=== PATIENT | female | born 1980 | race Caucasian/White ===

== ENCOUNTER 2017-09-18 16:19 | Emergency (ER) | payer OTHER ==
[~2017-09-18] VITALS: Ht 157.5 cm; Wt 62.1 kg
[~2017-09-18 16:19] MED LIST: Bactrim Ds Tab1 EACH PO; CIPR500 PO; Cleocin HCl150 MG PO; Cleocin HCl300 MG PO; ERYT.5TO BOTHEYES; Flagyl500 MG PO; MUPI2TC TOP; Norco 5-325 Ta1 EACH PO; PROM25 PO; Roxicodone5 MG PO; Ultram50 MG PO; Zofran4 MG PO
[2017-09-18 17:20] LABS: Source, Urine Clean Catch
[2017-09-18 17:24] LABS: Appearance, Urine Hazy (Clear); Bilirubin, Urine Neg (Neg); Blood, Urine 5+ (Neg); Color, Urine Yellow (P-Yellow); Glucose Qualitative, Urine Neg (Neg); Ketones, Urine Neg (Neg); Leukocyte Esterase, Urine 1+ (Neg); Nitrite, Urine Neg (Neg); Protein, Urine 1+ (Neg); Specific Gravity, Urine 1.005 (1.003-1.022); Urobilinogen, Urine NORM (Normal); pH, Urine 6.5 (5.0-8.0)
[2017-09-18 17:43] LABS: Bacteria Not Seen /hpf; Squamous Epithelial Cells Few /hpf (Few); White Blood Cells, Urine 0-2 /hpf (0-5)
[2017-09-18 19:16] LABS: BASOPHILS ABSOLUTE AUTO 0.05 K/mm3 (0.00-0.23); BASOPHILS PERCENT AUTO 1 % (0-2); EOSINOPHILS ABSOLUTE AUTO 0.16 K/mm3 (0.00-0.68); EOSINOPHILS PERCENT AUTO 2 % (0-6); Hematocrit 42.6 % (33.0-51.0); Hemoglobin 14.3 g/dL (11.5-16.0); IMMATURE GRAN ABSOLUTE AUTO 0.01 K/mm3 (0.00-0.10); IMMATURE GRAN PERCENT AUTO 0 % (0-1); LYMPHOCYTES ABSOLUTE AUTO 3.23 K/mm3 (0.84-5.20); LYMPHOCYTES PERCENT AUTO 42 % (21-46); MONOCYTES ABSOLUTE AUTO 0.75 K/mm3 (0.16-1.47); MONOCYTES PERCENT AUTO 10 % (4-13); Mean Corpuscular HGB 31.2 pg (26.0-34.0); Mean Corpuscular HGB Conc 33.6 g/dL (31.5-36.5); Mean Corpuscular Volume 93 fL (80-100); Mean Platelet Volume 11.7 fL (9.1-12.4); NEUTROPHILS ABSOLUTE AUTO 3.52 K/mm3 (1.96-9.15); NEUTROPHILS PERCENT AUTO 46 % (41-73); Platelet Count 174 K/mm3 (150-400); RDW Coefficient Variation 13.6 % (11.7-14.2); RDW Standard Deviation 46.3 fL (35.1-46.3); Red Blood Cell Count 4.58 M/mm3 (3.80-5.20); White Blood Cell Count 7.72 K/mm3 (4.00-11.30)
[2017-09-18 19:35] LABS: Alanine Aminotransfer (ALT/SGP 270 U/L (12-78); Albumin, Blood 3.8 g/dL (3.4-5.0); Albumin/Globulin Ratio 1.1 (0.8-1.8); Alk Phos 81 U/L (50-136); Anion Gap 6 mmol/L (6-16); Aspartate Aminotrans (AST/SGOT 132 U/L (12-37); Bilirubin, Total 0.5 mg/dL (0.1-1.0); Blood Urea Nitrogen 12 mg/dL (8-24); Bun/Creatinine Ratio 12.1 (12.0-20.0); CO2, Blood 23 mmol/L (21-32); Calcium, Blood 8.3 mg/dL (8.5-10.1); Chloride, Blood 114 mmol/L (98-108); Creatinine, Blood 0.99 mg/dL (0.40-1.00); Globulin, Blood 3.5 g/dL (2.2-4.0); Glomerular Filtration Rate >60 (60-); Glucose, Blood 88 mg/dL (70-99); Potassium, Blood 4.3 mmol/L (3.5-5.5); Sodium, Blood 143 mmol/L (136-145); Total Protein, Blood 7.3 g/dL (6.4-8.2)
[2017-09-18] MEDS ORDERED: METO10 PO (20:52)
== END 2017-09-18 21:07 | disposition home or self-care (01) ==
LOC: ER 16:19
PROVIDERS: Emergency Medicine
DX: K52.9 Noninfective gastroenteritis and colitis, unspecified (principal); Z88.6 Allergy status to analgesic agent; Z88.8 Allergy status to other drugs, medicaments and biological substances; Z88.0 Allergy status to penicillin; F17.210 Nicotine dependence, cigarettes, uncomplicated
CPT/HCPCS: 74176; 80053; 81001; 81025; 85025; 96361; 96374; 96375; 99284; J1200; J1630; J2550; J2765; J3010; J7030

== ENCOUNTER 2017-10-01 23:03 | Emergency (ER) | payer OTHER ==
[~2017-10-01] VITALS: Ht 154.9 cm; Wt 57.1 kg
[~2017-10-01 23:03] MED LIST changes: +METO10 PO
[2017-10-02 00:20] LABS: Calcium, Ionized (POC) 1.19 mmol/L (1.10-1.46); Chloride (POC) 108 mmol/L (98-108); Creatinine (POC) 0.8 mg/dL (0.6-1.0); Glucose (ISTAT POC) 104 mg/dL (70-99); Hemoglobin (POC) 13.6 g/dL (12.0-16.0); Potassium (POC) 3.5 mmol/L (3.5-5.5); Sodium (POC) 142 mmol/L (135-148); Total CO2 (POC) 22 mmol/L (21-32)
== END 2017-10-02 00:48 | disposition home or self-care (01) ==
LOC: ER 23:03
PROVIDERS: Emergency Medicine
DX: S90.31XA Contusion of right foot, initial encounter (principal); R25.2 Cramp and spasm; X58.XXXA Exposure to other specified factors, initial encounter; Z88.8 Allergy status to other drugs, medicaments and biological substances; Z88.6 Allergy status to analgesic agent; Z88.0 Allergy status to penicillin; F17.210 Nicotine dependence, cigarettes, uncomplicated
CPT/HCPCS: 73630; 80047; 85014; 99283

== ENCOUNTER 2017-10-29 18:34 | Emergency (ER) | payer OTHER ==
[~2017-10-29] VITALS: Ht 154.9 cm; Wt 57.6 kg
[2017-10-29] MEDS ORDERED: HYDPAM25 PO (18:48)
[2017-10-29 19:19] LABS: Source, Urine Clean Catch
[2017-10-29 19:19] LABS: BASOPHILS ABSOLUTE AUTO 0.02 K/mm3 (0.00-0.23); BASOPHILS PERCENT AUTO 0 % (0-2); EOSINOPHILS ABSOLUTE AUTO 0.03 K/mm3 (0.00-0.68); EOSINOPHILS PERCENT AUTO 0 % (0-6); Hematocrit 38.6 % (33.0-51.0); Hemoglobin 13.3 g/dL (11.5-16.0); IMMATURE GRAN ABSOLUTE AUTO 0.02 K/mm3 (0.00-0.10); IMMATURE GRAN PERCENT AUTO 0 % (0-1); LYMPHOCYTES ABSOLUTE AUTO 1.87 K/mm3 (0.84-5.20); LYMPHOCYTES PERCENT AUTO 24 % (21-46); MONOCYTES ABSOLUTE AUTO 0.65 K/mm3 (0.16-1.47); MONOCYTES PERCENT AUTO 8 % (4-13); Mean Corpuscular HGB 30.9 pg (26.0-34.0); Mean Corpuscular HGB Conc 34.5 g/dL (31.5-36.5); Mean Corpuscular Volume 90 fL (80-100); NEUTROPHILS ABSOLUTE AUTO 5.18 K/mm3 (1.96-9.15); NEUTROPHILS PERCENT AUTO 67 % (41-73); Platelet Count 205 K/mm3 (150-400); RDW Coefficient Variation 13.7 % (11.7-14.2); RDW Standard Deviation 45.1 fL (35.1-46.3); White Blood Cell Count 7.77 K/mm3 (4.00-11.30)
[2017-10-29 19:31] LABS: Bilirubin, Urine Neg (Neg); Blood, Urine 1+ (Neg); Glucose Qualitative, Urine Neg (Neg); Ketones, Urine 1+ (Neg); Leukocyte Esterase, Urine 1+ (Neg); Nitrite, Urine Pos (Neg); Protein, Urine 1+ (Neg); Specific Gravity, Urine 1.025 (1.003-1.022); Urobilinogen, Urine 1+ (Normal)
[2017-10-29 19:32] LABS: Appearance, Urine Hazy (Clear); Bacteria Many /hpf; Color, Urine Yellow (P-Yellow); Red Blood Cells, Urine 0-2 /hpf (0-2); Squamous Epithelial Cells Mod /hpf (Few)
[2017-10-29 19:33] LABS: Calcium Oxalate Crystals Few /hpf
[2017-10-29 19:38] LABS: Alanine Aminotransfer (ALT/SGP 451 U/L (12-78); Albumin, Blood 3.6 g/dL (3.4-5.0); Albumin/Globulin Ratio 0.9 (0.8-1.8); Alk Phos 96 U/L (50-136); Anion Gap 10 mmol/L (6-16); Aspartate Aminotrans (AST/SGOT 285 U/L (12-37); Bilirubin, Total 0.5 mg/dL (0.1-1.0); Blood Urea Nitrogen 18 mg/dL (8-24); Bun/Creatinine Ratio 17.3 (12.0-20.0); CO2, Blood 20 mmol/L (21-32); Calcium, Blood 9.2 mg/dL (8.5-10.1); Chloride, Blood 111 mmol/L (98-108); Creatinine, Blood 1.04 mg/dL (0.40-1.00); Globulin, Blood 3.8 g/dL (2.2-4.0); Glomerular Filtration Rate >60 (60-); Glucose, Blood 121 mg/dL (70-99); Potassium, Blood 3.8 mmol/L (3.5-5.5); Sodium, Blood 141 mmol/L (136-145); Total Protein, Blood 7.4 g/dL (6.4-8.2); Troponin I <0.015 ng/mL (0.000-0.040)
[2017-10-29 19:51] LABS: U Amphetamine Screen Not Detected; U Barbituate Screen Not Detected; U Benzodiazapine Screen DETECTED; U Buprenorphine Screen Not Detected; U Cannabinoids Screen DETECTED; U Cocaine Screen Not Detected; U Methadone Screen Not Detected; U Methamphetamine Screen Not Detected; U Opiates Screen Not Detected; U Oxycodone Screen Not Detected; U Phencyclidine Screen Not Detected; U Propoxyphene Screen Not Detected
[2017-10-29 21:20] LABS: Source, Urine Clean Catch
[2017-10-29 21:32] LABS: Appearance, Urine Clear (Clear); Bilirubin, Urine Neg (Neg); Blood, Urine Neg (Neg); Color, Urine Yellow (P-Yellow); Glucose Qualitative, Urine Neg (Neg); Ketones, Urine Neg (Neg); Leukocyte Esterase, Urine Neg (Neg); Nitrite, Urine Neg (Neg); Protein, Urine Neg (Neg); Specific Gravity, Urine 1.025 (1.003-1.022); Urobilinogen, Urine NORM (Normal)
== END 2017-10-29 22:00 | disposition left against medical advice (07) ==
LOC: ER 18:34
PROVIDERS: Emergency Medicine
DX: R55 Syncope and collapse (principal); S00.83XA Contusion of other part of head, initial encounter; F17.210 Nicotine dependence, cigarettes, uncomplicated; Z88.1 Allergy status to other antibiotic agents; Z88.6 Allergy status to analgesic agent; Z88.0 Allergy status to penicillin; Z88.5 Allergy status to narcotic agent; Z88.8 Allergy status to other drugs, medicaments and biological substances; Z79.899 Other long term (current) drug therapy; W19.XXXA Unspecified fall, initial encounter
CPT/HCPCS: 71046; 80053; 81001; 81003; 84443; 84484; 85025; 87077; 87086; 87186; 93005; 93010; 96372; 99285-25; J2550

== ENCOUNTER 2018-01-04 14:32 | Emergency (ER) | payer OTHER ==
[~2018-01-04] VITALS: Ht 154.9 cm; Wt 55.8 kg
[~2018-01-04 14:32] MED LIST changes: +HYDPAM25 PO
[2018-01-04 15:19] LABS: BASOPHILS ABSOLUTE AUTO 0.06 K/mm3 (0.00-0.23); BASOPHILS PERCENT AUTO 1 % (0-2); EOSINOPHILS ABSOLUTE AUTO 0.13 K/mm3 (0.00-0.68); EOSINOPHILS PERCENT AUTO 1 % (0-6); IMMATURE GRAN ABSOLUTE AUTO 0.02 K/mm3 (0.00-0.10); IMMATURE GRAN PERCENT AUTO 0 % (0-1); LYMPHOCYTES ABSOLUTE AUTO 3.41 K/mm3 (0.84-5.20); LYMPHOCYTES PERCENT AUTO 32 % (21-46); MONOCYTES ABSOLUTE AUTO 0.84 K/mm3 (0.16-1.47); MONOCYTES PERCENT AUTO 8 % (4-13); Mean Corpuscular HGB 31.3 pg (26.0-34.0); Mean Corpuscular HGB Conc 33.3 g/dL (31.5-36.5); Mean Corpuscular Volume 94 fL (80-100); Mean Platelet Volume 11.8 fL (9.1-12.4); NEUTROPHILS ABSOLUTE AUTO 6.12 K/mm3 (1.96-9.15); NEUTROPHILS PERCENT AUTO 58 % (41-73); Platelet Count 212 K/mm3 (150-400); RDW Coefficient Variation 13.1 % (11.7-14.2); RDW Standard Deviation 45.2 fL (35.1-46.3); Red Blood Cell Count 4.47 M/mm3 (3.80-5.20); White Blood Cell Count 10.58 K/mm3 (4.00-11.30)
[2018-01-04 15:34] LABS: Alanine Aminotransfer (ALT/SGP 156 U/L (12-78); Albumin, Blood 3.7 g/dL (3.4-5.0); Albumin/Globulin Ratio 0.9 (0.8-1.8); Alk Phos 88 U/L (50-136); Anion Gap 6 mmol/L (6-16); Aspartate Aminotrans (AST/SGOT 80 U/L (12-37); Bilirubin, Total 0.5 mg/dL (0.1-1.0); Blood Urea Nitrogen 18 mg/dL (8-24); Bun/Creatinine Ratio 20.3 (12.0-20.0); CO2, Blood 24 mmol/L (21-32); Calcium, Blood 8.9 mg/dL (8.5-10.1); Chloride, Blood 110 mmol/L (98-108); Creatinine, Blood 0.89 mg/dL (0.40-1.00); Globulin, Blood 3.9 g/dL (2.2-4.0); Glomerular Filtration Rate >60 (60-); Glucose, Blood 87 mg/dL (70-99); Potassium, Blood 4.1 mmol/L (3.5-5.5); Sodium, Blood 140 mmol/L (136-145); Total Protein, Blood 7.6 g/dL (6.4-8.2)
[2018-01-04] MEDS ORDERED: Bactrim Ds Tab1 EACH PO (19:02)
[2018-01-04] MEDS ORDERED: Cleocin HCl300 MG PO (19:02)
== END 2018-01-04 19:09 | disposition home or self-care (01) ==
LOC: ER 14:32
PROVIDERS: Emergency Medicine
DX: L03.032 Cellulitis of left toe (principal); L03.113 Cellulitis of right upper limb; L03.311 Cellulitis of abdominal wall; F17.210 Nicotine dependence, cigarettes, uncomplicated
CPT/HCPCS: 36415; 73660; 80053; 85025; 99284-25; J1885

== ENCOUNTER 2018-09-06 00:13 | Emergency (ER) | payer OTHER ==
[~2018-09-06] VITALS: Ht 154.9 cm; Wt 57.6 kg
== END 2018-09-06 02:08 | disposition home or self-care (01) ==
LOC: ER 00:13
DX: S09.90XA Unspecified injury of head, initial encounter (principal); S40.022A Contusion of left upper arm, initial encounter; F17.210 Nicotine dependence, cigarettes, uncomplicated; Z88.1 Allergy status to other antibiotic agents; Z88.6 Allergy status to analgesic agent; Z88.0 Allergy status to penicillin; Z88.5 Allergy status to narcotic agent; Z88.8 Allergy status to other drugs, medicaments and biological substances; W22.8XXA Striking against or struck by other objects, initial encounter
CPT/HCPCS: 70450; 72125; 73030; 81025; 99284-25

== ENCOUNTER 2020-05-04 19:29 | Emergency (ER) | payer SELFPAY ==
[~2020-05-04] VITALS: Ht 154.9 cm; Wt 63.5 kg
== END 2020-05-04 20:42 | disposition home or self-care (01) ==
LOC: ER 19:29
DX: B34.9 Viral infection, unspecified (principal); F17.210 Nicotine dependence, cigarettes, uncomplicated; Z88.1 Allergy status to other antibiotic agents; Z88.6 Allergy status to analgesic agent; Z91.030 Bee allergy status; Z91.018 Allergy to other foods
CPT/HCPCS: 99284

== ENCOUNTER 2022-11-20 12:57 | Emergency (ER) | payer OTHER ==
[~2022-11-20] VITALS: Ht 154.9 cm; Wt 63.5 kg
[2022-11-20 13:14] VITALS: BP 146/98
[2022-11-20] MEDS ORDERED: Clindamycin HC150 MG PO (14:45)
[2022-11-20] MEDS ORDERED: Percocet 5-3251 EACH PO (14:45)
== END 2022-11-20 14:51 | disposition home or self-care (01) ==
LOC: ER 12:57
DX: K02.9 Dental caries, unspecified (principal); F17.210 Nicotine dependence, cigarettes, uncomplicated; Z88.1 Allergy status to other antibiotic agents; Z88.0 Allergy status to penicillin; Z88.6 Allergy status to analgesic agent; Z91.030 Bee allergy status; Z88.8 Allergy status to other drugs, medicaments and biological substances; Z91.018 Allergy to other foods
CPT/HCPCS: 99282

== ENCOUNTER 2022-12-08 14:24 | Inpatient (IN) | payer OTHER ==
[~2022-12-08] VITALS: Ht 157.5 cm; Wt 64.7 kg
[~2022-12-08 14:24] MED LIST changes: +Clindamycin HC150 MG PO; +Percocet 5-3251 EACH PO
[2022-12-08] MEDS ORDERED: DOXYCYCLINE HY100 M1 PO (14:31)
[2022-12-08 20:02] LABS: BASOPHILS ABSOLUTE AUTO 0.04 K/mm3 (0.00-0.23); BASOPHILS PERCENT AUTO 1 % (0-2); EOSINOPHILS ABSOLUTE AUTO 0.21 K/mm3 (0.00-0.68); EOSINOPHILS PERCENT AUTO 3 % (0-6); Hematocrit 38.5 % (33.0-51.0); IMMATURE GRAN ABSOLUTE AUTO 0.01 K/mm3 (0.00-0.10); IMMATURE GRAN PERCENT AUTO 0 % (0-1); LYMPHOCYTES ABSOLUTE AUTO 1.91 K/mm3 (0.84-5.20); LYMPHOCYTES PERCENT AUTO 28 % (21-46); MONOCYTES ABSOLUTE AUTO 0.67 K/mm3 (0.16-1.47); MONOCYTES PERCENT AUTO 10 % (4-13); Mean Corpuscular HGB 29.2 pg (26.0-34.0); Mean Corpuscular HGB Conc 33.8 g/dL (31.5-36.5); Mean Corpuscular Volume 87 fL (80-100); NEUTROPHILS ABSOLUTE AUTO 3.93 K/mm3 (1.96-9.15); NEUTROPHILS PERCENT AUTO 58 % (41-73); Platelet Count 209 K/mm3 (150-400); Red Blood Cell Count 4.45 M/mm3 (3.80-5.20); White Blood Cell Count 6.77 K/mm3 (4.00-11.30)
[2022-12-08 20:03] LABS: Mean Platelet Volume 13.4 fL (9.1-12.4)
[2022-12-08 20:19] LABS: Albumin, Blood 2.9 g/dL (3.4-5.0); Albumin/Globulin Ratio 0.7 (0.8-1.8); Bilirubin, Total 0.2 mg/dL (0.1-1.0); Bun/Creatinine Ratio 23.8 (12.0-20.0); Calcium, Blood 8.6 mg/dL (8.5-10.1); Creatinine, Blood 0.92 mg/dL (0.40-1.00); Globulin, Blood 4.2 g/dL (2.2-4.0); Potassium, Blood 4.1 mmol/L (3.5-5.5); Total Protein, Blood 7.1 g/dL (6.4-8.2)
[2022-12-08 23:15] VITALS: BP 143/101
[2022-12-09 05:56] LABS: BASOPHILS ABSOLUTE AUTO 0.04 K/mm3 (0.00-0.23); BASOPHILS PERCENT AUTO 1 % (0-2); EOSINOPHILS ABSOLUTE AUTO 0.19 K/mm3 (0.00-0.68); EOSINOPHILS PERCENT AUTO 4 % (0-6); Hematocrit 36.4 % (33.0-51.0); Hemoglobin 12.2 g/dL (11.5-16.0); IMMATURE GRAN ABSOLUTE AUTO 0.01 K/mm3 (0.00-0.10); IMMATURE GRAN PERCENT AUTO 0 % (0-1); LYMPHOCYTES ABSOLUTE AUTO 1.78 K/mm3 (0.84-5.20); LYMPHOCYTES PERCENT AUTO 34 % (21-46); MONOCYTES ABSOLUTE AUTO 0.65 K/mm3 (0.16-1.47); MONOCYTES PERCENT AUTO 12 % (4-13); Mean Corpuscular HGB Conc 33.5 g/dL (31.5-36.5); Mean Corpuscular Volume 87 fL (80-100); Mean Platelet Volume 11.9 fL (9.1-12.4); NEUTROPHILS ABSOLUTE AUTO 2.65 K/mm3 (1.96-9.15); NEUTROPHILS PERCENT AUTO 50 % (41-73); Platelet Count 187 K/mm3 (150-400); RDW Coefficient Variation 15.2 % (11.7-14.2); RDW Standard Deviation 48.7 fL (35.1-46.3); White Blood Cell Count 5.32 K/mm3 (4.00-11.30)
--- NOTE | 2022-12-09 06:05 | NUR ---
SHIFT SUMMARY PT ARRIVED AT 2311, AAOX3, C/O HEADAHCE UNRELIEVED BY OXYCODONE. CALLED DR. HAMMONDS TO REQUEST ADDITIONAL PAIN MEDICATION. PRN FENTANYL ORDERED, AFTER MEDICATION VERIFIED RETURNED TO PT TO ASK IF SHE WOULD LIKE THIS MEDICATION AND PT WAS SLEEPING. WHEN PHLEBOTOMY WOKE PT UP FOR MORNING LABS PT C/O 10/ HEADACHE AND REQUESTED THE IV PAIN MEDICATION. PRN 50MCG FENTANYL GIVEN PER ORDER, PT CURRENTLY SLEEPING. FIRE SAFETY REVIEWED, NO IGNITION SOURCES
[2022-12-09 06:09] LABS: International Normalized Ratio 0.92; Prothrombin Time Results 9.7 Sec (9.7-11.5)
[2022-12-09 06:17] LABS: Albumin, Blood 2.5 g/dL (3.4-5.0); Albumin/Globulin Ratio 0.7 (0.8-1.8); Bilirubin, Total 0.2 mg/dL (0.1-1.0); Bun/Creatinine Ratio 30.5 (12.0-20.0); Calcium, Blood 8.2 mg/dL (8.5-10.1); Creatinine, Blood 0.92 mg/dL (0.40-1.00); Globulin, Blood 3.8 g/dL (2.2-4.0); Magnesium, Blood 1.9 mg/dL (1.6-2.4); Total Protein, Blood 6.3 g/dL (6.4-8.2)
[2022-12-09 07:42] VITALS: BP 134/96
[2022-12-09 10:04] VITALS: BP 147/84
[2022-12-09 11:27] VITALS: BP 145/85
[2022-12-09 15:17] VITALS: BP 145/85
[2022-12-09 15:35] VITALS: BP 162/96
--- NOTE | 2022-12-09 15:50 | NUR ---
REPORT CALLED TO SHIREEN VALIENTE AT [facility] AT 1545 ON 12/09/22. AWAITING TRANSPORT AT THIS TIME.
--- NOTE | 2022-12-09 18:34 | NUR ---
SHIFT SUMMARY PT AXO, PLEASANT AND COOPERATIVE WITH CARE. PT COMPLAINED OF SEVERE HEADACHE THIS SHIFT RATING 8/10. MEDICATED PER EMAR THOUGH FIRST ORAL DOSE OF ROXICODONE PER EMAR, PT THREW UP. PT ALSO MEDICATED PER EMAR WITH TORADOL. THIS NURSE EDUCATED PT ON THIS MEDICATION AND PATIENT AGREED. NURSE ADMINISTERED THE MED AND THEN PATIENT STATED THAT SHE HAS AN ALLERGY TO IT AND COMPLAINED OF ITCHING. THIS NURSE EDUCATED PATIENT ABOUT REFUSING MEDICATIONS THAT SHE IS ALLERGIC TO. DR WESLEY NOTIFIED AND IV BENADRYL ORDERED AND ADMINISTERED. VS MONITORED MORE CLOSELY, STABLE. ICE PACK GIVEN FOR HEADACHE. PT TOOK SHOWER AND STATES SHE FEELS A BIT BETTER. PT TO TRANSFER TO [facility]. REPORT CALLED TO [place] AT 1549 ALTHOUGH THIS NURSE WAS NOTIFIED THAT TRANSFER WOULD NOT HAPPEN UNTIL TONIGHT. [facility] [place] NOTIFIED. BED IN LOW POSITION, CALL LIGHT WITHIN REACH. PT UP AD MAX WITH STEADY GAIT.
--- NOTE | 2022-12-09 19:33 | NUR ---
Received report for patient. Patient complains of headache 11/15. Medicated with Dilaudid 1 mg for headache. Transport stretcher arrived for pt to leave [facility] to [facility] in [place]. Transport team received report and patient left with all belongings. Report was called on day shift.
[2022-12-10 09:09] LABS: HIV AB/P24 AG SCREEN Non Reactive (Non Reactive)
== END 2022-12-09 19:25 | disposition short-term general hospital (02) | DRG 57 ==
LOC: ER 14:24 → MEDS 19:40
PROVIDERS: Nurse Practitioner Acute Care; ADMIT Internal Medicine
PROC: 00JU3ZZ Inspection of Spinal Canal, Percutaneous Approach (ICD-10-PCS; principal; 2022-12-08)
DX: A52.3 Neurosyphilis, unspecified (principal); F11.11 Opioid abuse, in remission; F17.210 Nicotine dependence, cigarettes, uncomplicated; Z79.2 Long term (current) use of antibiotics; Z88.0 Allergy status to penicillin; Z88.1 Allergy status to other antibiotic agents; Z90.49 Acquired absence of other specified parts of digestive tract; Z98.890 Other specified postprocedural states; Z90.710 Acquired absence of both cervix and uterus
CPT/HCPCS: 36415; 62270; 70551; 80053; 83735; 85025; 85610; 87389; 96372-59; 96374-59; 99285-25; A9270; J1170; J1200; J1885; J3010; J7030

== ENCOUNTER 2022-12-14 11:45 | Inpatient (IN) | payer OTHER ==
[~2022-12-14] VITALS: Ht 157.5 cm; Wt 66.5 kg
[~2022-12-14 11:45] MED LIST changes: +DOXYCYCLINE HY100 M1 PO
[2022-12-14 16:27] VITALS: BP 146/85
[2022-12-14] MEDS ORDERED: PENICILLIN G IV (16:34)
--- NOTE | 2022-12-14 18:43 | NUR ---
PT IS A DIRECT ADMIT FROM [facility] IN [place]. PT ARRIVED AT APPROXIMENTLY 1630. PT ORIENTED TO ROOM. INDPENDENT. A&OX4 AND PLEASANT. PER TELEPHONE CONVERSTAION WITH DR BARBOSA, CONTINUE [facility] MEDICATIONS. VERIFIED WITH CHARGE NURSE. 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 PT STATED SHE WOULD LIKE TO BE INTERUPTED LITTLE POSSIBLE DURING THESE TIMES. BED IN LOWEST POSITION AND CALL LIGHT IN REACH.
[2022-12-14 19:27] VITALS: BP 128/68
[2022-12-15 04:41] VITALS: BP 109/74
[2022-12-15 05:55] LABS: BASOPHILS ABSOLUTE AUTO 0.04 K/mm3 (0.00-0.23); BASOPHILS PERCENT AUTO 1 % (0-2); EOSINOPHILS ABSOLUTE AUTO 0.26 K/mm3 (0.00-0.68); EOSINOPHILS PERCENT AUTO 5 % (0-6); Hematocrit 37.6 % (33.0-51.0); Hemoglobin 12.6 g/dL (11.5-16.0); Mean Corpuscular HGB Conc 33.5 g/dL (31.5-36.5); Mean Corpuscular Volume 86 fL (80-100); Mean Platelet Volume 12.5 fL (9.1-12.4); Platelet Count 195 K/mm3 (150-400); RDW Coefficient Variation 14.6 % (11.7-14.2); RDW Standard Deviation 46.5 fL (35.1-46.3); Red Blood Cell Count 4.35 M/mm3 (3.80-5.20); White Blood Cell Count 5.58 K/mm3 (4.00-11.30)
[2022-12-15 05:59] LABS: IMMATURE GRAN ABSOLUTE AUTO 0.01 K/mm3 (0.00-0.10); IMMATURE GRAN PERCENT AUTO 0 % (0-1); LYMPHOCYTES ABSOLUTE AUTO 1.88 K/mm3 (0.84-5.20); LYMPHOCYTES PERCENT AUTO 34 % (21-46); MONOCYTES ABSOLUTE AUTO 0.74 K/mm3 (0.16-1.47); MONOCYTES PERCENT AUTO 13 % (4-13); NEUTROPHILS ABSOLUTE AUTO 2.65 K/mm3 (1.96-9.15); NEUTROPHILS PERCENT AUTO 47 % (41-73)
[2022-12-15 06:45] LABS: Albumin, Blood 2.7 g/dL (3.4-5.0); Albumin/Globulin Ratio 0.7 (0.8-1.8); Bilirubin, Total 0.3 mg/dL (0.1-1.0); Bun/Creatinine Ratio 31.3 (12.0-20.0); Calcium, Blood 8.9 mg/dL (8.5-10.1); Creatinine, Blood 0.9 mg/dL (0.40-1.00); Magnesium, Blood 2.1 mg/dL (1.6-2.4); Potassium, Blood 4.6 mmol/L (3.5-5.5); Total Protein, Blood 6.7 g/dL (6.4-8.2)
--- NOTE | 2022-12-15 07:34 | NUR ---
END OF SHIFT SUMMARY PT A&O x4, VSS. PT COMPLETING IV PENICILLIN ANTIBIOTICS Q4 HRS. PT C/O AVALOS 11/15. PT REQUESTED PRN DILAUDID, WHICH WAS EFFECTIVE. PT INDEPENDENT WITH ADL's, UP AD MAX, STEADY GAIT. LIMITED VISION TO R EYE, PT ENCOURAGED TO CALL FOR ASSISTANCE FOR SAFETY WITH TRANSFERS. PT SLEPT WELL THROUGHOUT THE NIGHT, PT ABLE TO MAKE NEEDS KNOWN. CALL LIGHT WITHIN REACH, WCTM.
[2022-12-15 07:47] VITALS: BP 146/86
[2022-12-15 15:21] VITALS: BP 136/92
--- NOTE | 2022-12-15 18:12 | NUR ---
SUMMARY- PT A/O X4, INDEPENDANT IN ROOM, AMBULATES FREQ OUT INTO HALLS TO GET EXERCISE. 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 HAD A HEADACHE THIS AM RELEIVED WITH ONE DILAUDID, STATES RELEIF AND DECLINED FURTHER OFFER OF PAIN MED. PT TOLERATING FOOD AND FLUID. POWERGLIDE TO [place]. PCN Q4 HRS. PT SHOWERED INDEPENDANTLY. VERY PLEASANT TO WORK WITH. WILL REPORT TO NOC RN
--- NOTE | 2022-12-15 18:20 | NUR ---
REDNESS, ITCHY AREA ON LOWER BACK, NO NOTED RASH, JUST RED FROM PT SCRATCHING. MEDICATED WITH ATARAX. WILL CONT TO [place]
[2022-12-15 19:51] VITALS: BP 124/76
[2022-12-16 04:30] VITALS: BP 126/81
--- NOTE | 2022-12-16 06:46 | NUR ---
PT REPORTS TOLERATING PENICILLIN THIS SHIFT, DENIES NEED FOR PRN ALLERGY MEDS. VSS ON RA, UP AD MAX, PLEASANT, CALLS APPROPRIATELY. 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 FIRE SAFETY REVIEWED.
[2022-12-16 07:33] VITALS: BP 110/83
[2022-12-16 15:26] VITALS: BP 121/73
[2022-12-16 19:22] VITALS: BP 114/87
[2022-12-17 05:20] VITALS: BP 140/89
[2022-12-17 08:38] VITALS: BP 138/102
[2022-12-17 17:49] VITALS: BP 156/109
[2022-12-17 19:23] VITALS: BP 155/96
[2022-12-18 05:21] VITALS: BP 120/67
[2022-12-18 08:18] VITALS: BP 154/76
[2022-12-18 15:22] VITALS: BP 150/102
--- NOTE | 2022-12-18 17:36 | NUR ---
SHIFT SUMMARY MEDICATED FOR HEADACHE THIS AFTERNOON WITH PO DILAUDID PER EMAR. PT REPORTS PAIN BETTER AFTER. PT TAKE MULTIPLE WALKS THROUGH OUT THE SHIFT. IV PENICILLIN EVERY 4 HOURS PER ORDERS. POWERGLIDE INTACT WITH NO REDNESS OR LEAKING NOTED. PT HAS HAD A GOOD APPETITE. NO ACUTE CHANGES. PT CONTINUES TO BE HERE FOR DURATION OF IV ANTIBIOTICS. CALL LIGHT IN REACH.
[2022-12-18 19:49] VITALS: BP 150/101
--- NOTE | 2022-12-19 02:38 | NUR ---
SHIFT SUMMARY A/O VSS PLEASENT PT STARTED OFF MILD PAIN TO HEAD AND PT WAS MEDICATED, AT 0130 PT MEDICATED AGAIN DUE TO HEADACHE AND VOMITING. THEN AT 230 PT WAS CRYING AND VOMITING IN BATHROOM, DR CAT WAS NOTIFIED AND DILAUDID IV WAS ADMINISTERED NOW IS ATTEMPTING TO SLEEP, WILL CONT TO MONITOR.
[2022-12-19 05:12] VITALS: BP 153/86
[2022-12-19 06:09] LABS: BASOPHILS ABSOLUTE AUTO 0.06 K/mm3 (0.00-0.23); BASOPHILS PERCENT AUTO 1 % (0-2); EOSINOPHILS ABSOLUTE AUTO 0.17 K/mm3 (0.00-0.68); EOSINOPHILS PERCENT AUTO 3 % (0-6); Hematocrit 43.1 % (33.0-51.0); Hemoglobin 14.6 g/dL (11.5-16.0); IMMATURE GRAN ABSOLUTE AUTO 0.01 K/mm3 (0.00-0.10); IMMATURE GRAN PERCENT AUTO 0 % (0-1); LYMPHOCYTES ABSOLUTE AUTO 1.55 K/mm3 (0.84-5.20); LYMPHOCYTES PERCENT AUTO 24 % (21-46); MONOCYTES ABSOLUTE AUTO 0.62 K/mm3 (0.16-1.47); MONOCYTES PERCENT AUTO 10 % (4-13); Mean Corpuscular HGB 29.3 pg (26.0-34.0); Mean Corpuscular HGB Conc 33.9 g/dL (31.5-36.5); Mean Corpuscular Volume 86 fL (80-100); Mean Platelet Volume 12.1 fL (9.1-12.4); NEUTROPHILS ABSOLUTE AUTO 4.09 K/mm3 (1.96-9.15); NEUTROPHILS PERCENT AUTO 63 % (41-73); Platelet Count 231 K/mm3 (150-400); RDW Coefficient Variation 14.5 % (11.7-14.2); RDW Standard Deviation 46.4 fL (35.1-46.3); Red Blood Cell Count 4.99 M/mm3 (3.80-5.20)
[2022-12-19 06:45] LABS: Albumin, Blood 3.2 g/dL (3.4-5.0); Albumin/Globulin Ratio 0.6 (0.8-1.8); Bilirubin, Total 0.5 mg/dL (0.1-1.0); C-REACTIVE PROTEIN, EXT RANGE 1.06 mg/dL (0.000-0.300); Calcium, Blood 9.3 mg/dL (8.5-10.1); Creatinine, Blood 0.78 mg/dL (0.40-1.00); Globulin, Blood 5.1 g/dL (2.2-4.0); Potassium, Blood 4.3 mmol/L (3.5-5.5); Total Protein, Blood 8.3 g/dL (6.4-8.2)
[2022-12-19 07:38] VITALS: BP 144/95
[2022-12-19 13:07] LABS: RPR Reactive (Nonreactive)
[2022-12-19 15:33] VITALS: BP 126/81
--- NOTE | 2022-12-19 17:41 | NUR ---
SHIFT SUMMARY PT A&OX4, VSS, AMB INDEPENDENTLY, VOIDING, TOLERATING PO, AND DENIES PAIN. PT CALLS APPROPRIATELY AND CALL LIGHT IS WITHIN REACH. WILL CONTINUE TO MONITOR FOR CHANGES UNTIL END OF SHIFT AND REPORT TO THE ONCOMING RN.
--- NOTE | 2022-12-19 18:33 | NUR ---
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
--- NOTE | 2022-12-20 04:36 | NUR ---
SHIFT SUMMARY REPORT RECEIVED VSS PT DID MUCH BETTER TODAY AND SLEPT THROUGH ENTIRE SHIFT PLANNED. NO NEW REPORT .
[2022-12-20 05:13] VITALS: BP 107/71
[2022-12-20 16:19] VITALS: BP 137/87
--- NOTE | 2022-12-20 16:38 | NUR ---
SHIFT SUMMARY PT A&OX4, VSS, AMB INDEPENDENTLY, VOIDING, TOLERATING PO, AND PAIN MANAGED PER EMAR. PT CALLS APPROPRIATELY AND CALL LIGHT IS WITHIN REACH. PLAN FOR POSSIBLE DISCHARGE TOMORROW TO [facility]. WILL CONTINUE TO MONITOR FOR CHANGES UNTIL END OF SHIFT AND REPORT TO THE ONCOMING RN.
[2022-12-20 20:18] VITALS: BP 132/89
[2022-12-21 05:11] VITALS: BP 134/77
--- NOTE | 2022-12-21 06:31 | NUR ---
SHIFT SUMMARY NOC PT A/O X 4. PLEASANT AND COOPERATIVE WITH CARE. NO ACUTE CHANGES TO REPORT. PT HAS PG IN [place] AND RECEIVING IV PCN FOR OCULAR SYPHYLLIS. CYBER OPS PLANNER ATTEMPTED TO GET PT INTO [facility] FOR OUTPATIENT IV ABX TREATMENT, BUT PT WAS DEEMED TO HIGH RISK BECAUSE OF PAST IV HEROIN USE, EVEN THOUGH PT HAS BEEN CLEAN FOR 13 YEARS. REF[place] [facility] HAVE BEEN INITIATED SO PT CAN FINISH ABX TREATMENT. PT IS EAGER TO DISCHARGE FROM HOSPITAL TO FINISH TREATMENT AT ANOTHER FACILITY. PT IS CURRENTLY RESTING WITH BED IN LOWEST POSITION, AND CALL LIGHT WITHIN REACH.
[2022-12-21 07:48] VITALS: BP 168/106
[2022-12-21 08:45] VITALS: BP 139/95
[2022-12-21 10:51] LABS: SARS-Cov-2 (COVID-19) PCR, MMC NEGATIVE (NEGATIVE)
[2022-12-21] MEDS ORDERED: Acetaminophen650 M1 PO ×2 (13:07)
[2022-12-21] MEDS ORDERED: HYDHCL25 PO ×2 (13:09)
[2022-12-21] MEDS ORDERED: LACRI-LUBE BOTHEYES ×2 (13:11)
[2022-12-21] MEDS ORDERED: [UNRECOGNIZED DRUG - OTHER] IV ×2 (13:17)
[2022-12-21] MEDS ORDERED: OXYC5 PO ×2 (16:16)
--- NOTE | 2022-12-21 16:19 | NUR ---
DISCHARGE- LATE ENTRY PT DISCHARGED TO SNF. TRANSFERED BY [facility]. DISCHARGE PACKET SENT WITH PT. NO QUESTIONS OR CONCERNS AT TIME OF DISCHARGE.
== END 2022-12-21 14:20 | DRG 57 ==
LOC: MEDS 11:45 → ENPENDDIS 12-21 11:57 → MEDS 12-21 14:20
PROVIDERS: Hospitalist; ADMIT Internal Medicine
DX: A52.3 Neurosyphilis, unspecified (principal); H33.21 Serous retinal detachment, right eye; R74.01 Elevation of levels of liver transaminase levels; Z20.822 Contact with and (suspected) exposure to COVID-19; F11.90 Opioid use, unspecified, uncomplicated; Z90.710 Acquired absence of both cervix and uterus; Z90.49 Acquired absence of other specified parts of digestive tract; Z90.89 Acquired absence of other organs; Z98.890 Other specified postprocedural states; Z88.0 Allergy status to penicillin; Z88.8 Allergy status to other drugs, medicaments and biological substances; Z88.1 Allergy status to other antibiotic agents; Z91.018 Allergy to other foods; Z91.038 Other insect allergy status; Z79.2 Long term (current) use of antibiotics
CPT/HCPCS: 36415; 80053; 83735; 85025; 85651; 86140; 86592; 86593; 86780; A9270; J1170; J2540; J7050; U0002

== ENCOUNTER 2022-12-22 13:19 | Emergency (ER) | payer OTHER ==
[~2022-12-22] VITALS: Ht 157.5 cm; Wt 66.7 kg
[~2022-12-22 13:19] MED LIST changes: +Acetaminophen650 M1 PO; +HYDHCL25 PO; +LACRI-LUBE BOTHEYES; +OXYC5 PO; +PENICILLIN G IV; +[UNRECOGNIZED DRUG - OTHER] IV
[2022-12-22 13:26] VITALS: BP 129/98
== END 2022-12-22 16:15 | disposition left against medical advice (07) ==
LOC: ER 13:19
DX: A52.3 Neurosyphilis, unspecified (principal); Z76.0 Encounter for issue of repeat prescription; F17.210 Nicotine dependence, cigarettes, uncomplicated; Z88.1 Allergy status to other antibiotic agents; Z91.030 Bee allergy status; Z88.6 Allergy status to analgesic agent; Z91.018 Allergy to other foods; Z88.8 Allergy status to other drugs, medicaments and biological substances
CPT/HCPCS: 99283; J2540